=== PATIENT | male | born 1970 ===

== ENCOUNTER 2018-05-04 08:00 | Inpatient (IN) | payer OTHER ==
[~2018-05-04] VITALS: Ht 175.3 cm; Wt 73.5 kg
[2018-05-08] MEDS ORDERED: ZANTAC150 MG PO (11:27)
[2018-05-08] MEDS ORDERED: FLAGYL500MG PO (11:27)
[2018-05-08] MEDS ORDERED: AMOX-CLAV 875-1 EACH PO (11:27)
[2018-05-08] MEDS ORDERED: INTESTINEX680 M1 PO (11:28)
== END 2018-05-08 16:40 | disposition home or self-care (01) | DRG 392 ==
LOC: ER 08:00 → MEDI 15:48 → MEDJ 15:48 → MEDI 19:47
PROC: BW25Y0Z Computerized Tomography (CT Scan) of Chest, Abdomen and Pelvis using Other Contrast, Unenhanced and Enhanced (ICD-10-PCS; 2018-05-04)
PROC: 3E0336Z Introduction of Nutritional Substance into Peripheral Vein, Percutaneous Approach (ICD-10-PCS; principal; 2018-05-05)
DX: K57.20 Diverticulitis of large intestine with perforation and abscess without bleeding (principal)

== ENCOUNTER 2018-08-25 09:24 | Day surgery (SDC) | payer OTHER ==
[~2018-08-25 09:24] MED LIST: AMOX-CLAV 875-1 EACH PO; FLAGYL500MG PO; INTESTINEX680 M1 PO; ZANTAC150 MG PO
== END 2018-08-25 15:15 | disposition home or self-care (01) ==
LOC: AMB-ENDOS 09:24
DX: K57.32 Diverticulitis of large intestine without perforation or abscess without bleeding (principal); K64.0 First degree hemorrhoids